=== PATIENT | male | born 1975 | race Caucasian/White ===

== ENCOUNTER 2017-01-07 16:02 | Emergency (ER) | payer OTHER ==
[~2017-01-07] VITALS: Ht 167.6 cm; Wt 80.7 kg
--- NOTE | ~2017-01-07 | EKG ---
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
[~2017-01-07 16:02] MED LIST: BACTRIM DS TAB1 EACH PO; CIPRO500 MG PO; IBUPROFEN 800800 M1 PO; NAPROSYN375 MG PO; NOHOMEMEDICATIONS; NORCO 10-325 T1 EACH PO; NORCO 5-325 TA1 EACH PO; PERCOCET PO; PHENAZOPYRIDIN200 M2 PO; TRAMADOL 50 MG50 MG PO; ULTRAM 50MG TAB50 MG PO
[2017-01-07 16:43] LABS: ABSOLUTE NEUTROPHILS 6.5 thou/uL (1.4-8.2); BASOPHILS 0.8 % (0.0-2.0); HEMATOCRIT 48.1 % (42.0-52.0); HEMOGLOBIN 16.7 gm/dL (14.0-18.0); LYMPHOCYTES 23.7 % (24.0-44.0); MCH 31.9 pg (26.0-34.0); MCHC 34.7 g/dL (28.0-37.0); MCV 91.9 fL (80.0-100.0); PLATELET COUNT 272 thou/uL (150-400); POLYS 67.5 % (36.0-66.0); RBC 5.23 mil/uL (4.50-6.00); RDW 13.6 % (10.5-14.5); WBC 9.6 thou/uL (4.0-11.0)
[2017-01-07 16:44] LABS: MANUAL DIFF NO
[2017-01-07 16:50] LABS: ANION GAP 12 mmol/L (7-16); BUN 13 mg/dL (7-18); CALCIUM 9.7 mg/dL (8.5-10.1); CHLORIDE 102 mmol/L (98-107); CO2 25 mmol/L (21-32); GLUCOSE 86 mg/dL (74-106); POTASSIUM 4.1 mmol/L (3.5-5.1); SODIUM 139 mmol/L (136-145)
[2017-01-07 16:59] LABS: TROPONIN-I < 0.04 ng/mL (<0.04-0.07)
[2017-01-07] MEDS ORDERED: NORCO 5-325 TA1 EACH PO (17:18)
[2017-01-07] MEDS ORDERED: ANTIVERT25 MG PO (17:18)
== END 2017-01-07 17:54 | disposition home or self-care (01) ==
LOC: ER 16:02
PROVIDERS: Emergency Medicine
DX: R42 Dizziness and giddiness (principal); R20.2 Paresthesia of skin; M54.32 Sciatica, left side; I25.2 Old myocardial infarction; F17.210 Nicotine dependence, cigarettes, uncomplicated; F10.99 Alcohol use, unspecified with unspecified alcohol-induced disorder; F15.10 Other stimulant abuse, uncomplicated; Z88.5 Allergy status to narcotic agent; Z87.442 Personal history of urinary calculi

== ENCOUNTER 2017-04-23 14:17 | Emergency (ER) | payer OTHER ==
[~2017-04-23] VITALS: Ht 170.2 cm; Wt 68.0 kg
--- NOTE | ~2017-04-23 | EKG ---
[address] [address] ELECTROCARDIOGRAM REPORT Name: DERIK ACE Room [facility]: [facility] [id number] Admission: 04/23/17 Attend Phys: Discharge: 04/23/17 Date of : 73 Report #: [id number] THIS REPORT FOR: //name// [facility] ED Test Date: 2017-04-23 Test Time: 14:27:34 Pat Name: DERIK ACE Department: Room: Gender: Airborne Operations: RUST : 1975 Requested By: Andie Ryan Order Number: [id number] MD: Jacob Reeves Measurements Intervals [place] Rate: 89 P: 23 [place]: 161 QRS: 53 QRSD: 75 T: 36 QT: 331 QTc: 403 Interpretive Statements Sinus rhythm Compared to ECG 01/07/2017 16:34:42 Early repolarization no longer present Electronically Signed On 04-23-2017 22:09:25 SPOT FACER by Jacob Reeves [email or web address] <ELECTRONICALLY SIGNED> By: Jacob Reeves MD 04/23/17 2209 1427 1427 MD LINDA Oliva
[~2017-04-23 14:17] MED LIST changes: +ANTIVERT25 MG PO
[2017-04-23] MEDS ORDERED: LIDOCARE1 EACH TOP (15:50)
[2017-04-23] MEDS ORDERED: MOBIC15 MG PO (15:50)
== END 2017-04-23 16:08 | disposition home or self-care (01) ==
LOC: ER 14:17
DX: S20.212A Contusion of left front wall of thorax, initial encounter (principal); F17.210 Nicotine dependence, cigarettes, uncomplicated; Z87.442 Personal history of urinary calculi; Z88.5 Allergy status to narcotic agent; W10.8XXA Fall (on) (from) other stairs and steps, initial encounter; Y93.89 Activity, other specified; Y92.89 Other specified places as the place of occurrence of the external cause; Y99.8 Other external cause status

== ENCOUNTER 2017-07-24 13:24 | Emergency (ER) | payer OTHER ==
[~2017-07-24] VITALS: Ht 167.6 cm; Wt 63.5 kg
[~2017-07-24 13:24] MED LIST changes: +LIDOCARE1 EACH TOP; +MOBIC15 MG PO
[2017-07-24 15:37] LABS: AMP/METHAMP POSITIVE (Negative); BARBITURATES Negative (Negative); BENZODIAZEPINES POSITIVE (Negative); COCAINE POSITIVE (Negative); METHADONE Negative (Negative); OPIATES Negative (Negative); PCP Negative (Negative)
[2017-07-24] MEDS ORDERED: NAPROSYN500 MG PO (15:47)
[2017-07-24 16:17] VITALS: BP 178/70
== END 2017-07-24 16:19 | disposition home or self-care (01) ==
LOC: ER 13:24
PROVIDERS: Emergency Medicine
DX: S80.02XA Contusion of left knee, initial encounter (principal); S50.01XA Contusion of right elbow, initial encounter; F15.10 Other stimulant abuse, uncomplicated; F14.10 Cocaine abuse, uncomplicated; F17.210 Nicotine dependence, cigarettes, uncomplicated; V43.12XA Car passenger injured in collision with other type car in nontraffic accident, initial encounter; Y93.89 Activity, other specified; Y92.89 Other specified places as the place of occurrence of the external cause; Y99.8 Other external cause status

== ENCOUNTER 2017-08-29 14:00 | Emergency (ER) | payer OTHER ==
[~2017-08-29] VITALS: Ht 182.9 cm; Wt 86.2 kg
[~2017-08-29 14:00] MED LIST changes: +NAPROSYN500 MG PO
[2017-08-29 14:30] VITALS: BP 123/91
[2017-08-29 14:59] LABS: AMP/METHAMP Negative (Negative); BARBITURATES Negative (Negative); BENZODIAZEPINES Negative (Negative); COCAINE POSITIVE (Negative); METHADONE Negative (Negative); OPIATES Negative (Negative); PCP Negative (Negative)
[2017-08-29 15:28] LABS: HEMATOCRIT 42.4 % (42.0-52.0); HEMOGLOBIN 14.3 gm/dL (14.0-18.0); MCH 31.3 pg (26.0-34.0); MCHC 33.8 g/dL (28.0-37.0); MCV 92.5 fL (80.0-100.0); RBC 4.58 mil/uL (4.50-6.00); RDW 13.7 % (10.5-14.5); WBC 12.7 thou/uL (4.0-11.0)
[2017-08-29 15:38] LABS: CALCIUM 9.3 mg/dL (8.5-10.1); POTASSIUM 3.7 mmol/L (3.5-5.1)
[2017-08-30 16:21] VITALS: BP 98/50
== END 2017-08-30 15:00 ==
LOC: ER 14:00 → EROBS 08-30 11:36
PROVIDERS: Emergency Medicine
DX: R45.851 Suicidal ideations (principal); F19.10 Other psychoactive substance abuse, uncomplicated; F17.210 Nicotine dependence, cigarettes, uncomplicated; Z88.5 Allergy status to narcotic agent

== ENCOUNTER 2017-11-08 17:17 | Emergency (ER) | payer OTHER ==
[~2017-11-08] VITALS: Ht 170.2 cm; Wt 72.6 kg
--- NOTE | ~2017-11-08 | EKG ---
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
[2017-11-08] MEDS ORDERED: TRAZODONE HCL50 MG PO (17:46)
[2017-11-08] MEDS ORDERED: CYMBALTA20 MG PO (17:46)
[2017-11-08] MEDS ORDERED: QUETIAPINE FUM100 MG PO (17:46)
[2017-11-08 18:29] LABS: URINE BLOOD 3+ (Negative); URINE CLARITY CLEAR; URINE COLOR YELLOW; URINE GLUCOSE-RANDOM* NEGATIVE (Negative); URINE KETONES TRACE (Negative); URINE LEUKOCYTES-REFLEX NEGATIVE (Negative); URINE NITRITE-REFLEX NEGATIVE (Negative); URINE PROTEIN (DIPSTICK) 1+ (Negative); URINE SPECIFIC GRAVITY >= 1.030 (1.005-1.035); URINE UROBILINOGEN 0.2 E.U./dl (0.2-1.0)
[2017-11-08 18:32] LABS: ICTOTEST (BILI CONFIRMATORY) Negative (Negative); URINE BILIRUBIN NEGATIVE (Negative)
[2017-11-08 18:40] LABS: ABSOLUTE NEUTROPHILS 7.7 thou/uL (1.4-8.2); BASOPHILS 0.8 % (0.0-2.0); EOSINOPHILS 4.2 % (0.0-3.0); HEMATOCRIT 43.5 % (42.0-52.0); HEMOGLOBIN 14.7 gm/dL (14.0-18.0); LYMPHOCYTES 17.5 % (24.0-44.0); MCH 31.6 pg (26.0-34.0); MCHC 33.8 g/dL (28.0-37.0); MCV 93.5 fL (80.0-100.0); MONOCYTES 7.2 % (1.0-8.0); PLATELET COUNT 281 thou/uL (150-400); POLYS 70.3 % (36.0-66.0); RBC 4.65 mil/uL (4.50-6.00); RDW 14.1 % (10.5-14.5)
[2017-11-08 18:44] LABS: BACTERIA-REFLEX 1-9 Few /HPF (None Seen); CASTS None Seen /LPF (None Seen); CRYSTALS None Seen /LPF (None Seen); SQUAMOUS None Seen /LPF (0-3); URINE RBC >20 Many /HPF (0-2); URINE WBC-REFLEX 0-5 Rare /HPF (0-5)
[2017-11-08 18:49] LABS: ANION GAP 6 mmol/L (7-16); BUN 14 mg/dL (7-18); CALCIUM 9.3 mg/dL (8.5-10.1); CHLORIDE 102 mmol/L (98-107); CO2 28 mmol/L (21-32); CREATININE 0.9 mg/dL (0.7-1.3); GLUCOSE 118 mg/dL (74-106); POTASSIUM 3.8 mmol/L (3.5-5.1); SODIUM 136 mmol/L (136-145)
[2017-11-08 18:57] LABS: TROPONIN-I < 0.04 ng/mL (<0.06)
[2017-11-08] MEDS ORDERED: MOBIC15 MG PO (20:42)
[2017-11-08] MEDS ORDERED: KEFLEX500 M1 PO (20:42)
== END 2017-11-08 21:17 | disposition home or self-care (01) ==
LOC: ER 17:17
PROVIDERS: Emergency Medicine
DX: N20.0 Calculus of kidney (principal); N39.0 Urinary tract infection, site not specified; R42 Dizziness and giddiness; R31.9 Hematuria, unspecified; F17.210 Nicotine dependence, cigarettes, uncomplicated; Z88.5 Allergy status to narcotic agent

== ENCOUNTER 2020-12-10 18:12 | Emergency (ER) | payer MEDICARE ==
[~2020-12-10] VITALS: Ht 167.6 cm; Wt 68.0 kg
[~2020-12-10 18:12] MED LIST changes: +CYMBALTA20 MG PO; +KEFLEX500 M1 PO; +QUETIAPINE FUM100 MG PO; +TRAZODONE HCL50 MG PO
[2020-12-10] MEDS ORDERED: AUGMENTIN 875-1 EACH PO (21:26)
[2020-12-10] MEDS ORDERED: NORCO5 PO (21:26)
[2020-12-10 22:40] VITALS: BP 125/90
== END 2020-12-10 22:30 ==
LOC: ER 18:12
DX: S51.811A Laceration without foreign body of right forearm, initial encounter (principal); F17.210 Nicotine dependence, cigarettes, uncomplicated; Z87.442 Personal history of urinary calculi; Z88.5 Allergy status to narcotic agent; Z98.890 Other specified postprocedural states; W54.0XXA Bitten by dog, initial encounter; Y93.89 Activity, other specified; Y92.89 Other specified places as the place of occurrence of the external cause; Y99.8 Other external cause status